=== PATIENT | male | born 1990 | race Caucasian/White ===

== ENCOUNTER 2023-06-30 10:42 | Outpatient (OUT) | payer BC, SELFPAY ==
--- NOTE | 2023-06-30 10:51 | XR_ITS ---
The [address] [address] Patient Name: RIVAS LYLES MRN: [id number] date: 1990 Sex: M Assigned Patient Location: [facility] Current Patient Location: Accession/Order Number: [id number] Exam Date: 06/30/2023 11:04 Report Date: 07/02/2023 12:26 At the request of: LYN MCNALLY Procedure: XR shoulder LT min 2V PROCEDURE: XR shoulder LT min 2V HISTORY: Chronic Pain G89.29, Left Shoulder Pain M25.512 COMPARISON: None. FINDINGS: BONES:No fracture, acute abnormality, or significant arthropathy. SOFT TISSUES:No visible soft tissue swelling. EFFUSION:None visible. OTHER: Negative. XR/XR shoulder LT min 2V IMPRESSION: 1. No acute bone abnormality or significant degenerative changes. Electronically authenticated by: TAYLOR LIN Date: 07/02/2023 12:26
== END 2023-06-30 10:43 | disposition home or self-care (01) ==
LOC: RAD 10:47
PROVIDERS: PCP Nurse Practitioner Family; Visit Provider Nurse Practitioner Family
DX: G89.29 Other chronic pain (principal); M25.512 Pain in left shoulder
CPT/HCPCS: 73030

== ENCOUNTER 2024-08-21 08:47 | Outpatient (OUT) | payer BC, SELFPAY ==
[2024-08-21 09:04] LABS: Basophils Percent Auto 0.2 % (0.2-2.0); Eosinophils Absolute Auto 0.3 10^3/uL (0.0-0.7); Eosinophils Percent Auto 3.1 % (0.9-7.0); Hemoglobin 16.2 g/dL (14.0-18.0); Immature Granulocytes Abs Auto 0.02 10^3/uL (0.00-0.03); Immature Granulocytes Pct Auto 0.2 % (0.0-0.5); Lymphocytes Absolute Auto 3.9 10^3/uL (1.2-3.8); Lymphocytes Percent Auto 43.5 % (20.5-60.0); Mean Corpuscular HGB Conc 34.5 g/dL (29.9-35.2); Mean Corpuscular Hemoglobin 30.1 pg (25.9-34.0); Mean Corpuscular Volume 87.4 fL (80.0-94.0); Mean Platelet Volume 9.6 fL (9.5-13.5); Monocytes Absolute Auto 0.8 10^3/uL (0.3-0.8); Monocytes Percent Auto 9.2 % (1.7-12.0); Neutrophils Absolute Auto 3.9 10^3/uL (1.4-6.5); Neutrophils Percent Auto 43.8 % (43.0-75.0); Platelet Count 210 10^3/uL (150-450); Red Blood Count 5.38 10^6/uL (4.70-6.10); Red Cell Distribution Width 12.9 % (11.0-15.0); White Blood Count 8.9 10^3/uL (4.0-11.0)
[2024-08-21 09:44] LABS: Alanine Aminotransferase 103 U/L (16-63); Albumin Globulin Ratio 1.1; Albumin Level 3.7 g/dL (3.4-5.0); Alkaline Phosphatase 73 U/L (46-116); Anion Gap 8.9; Aspartate Amino Transferase 31 U/L (15-37); BUN Creatinine Ratio 16.7; Bilirubin Total 0.4 mg/dL (0.2-1.0); Carbon Dioxide 29.4 mmol/L (21.0-32.0); Chloride 105 mmol/L (98-107); Chol HDL Ratio 4.2; Cholesterol 179 mg/dL (<=200); Estimated GFR (African America >60 (>=60 mL/min/1.73m^2); Estimated GFR (Non-African Ame >60 (>=60 mL/min/1.73m^2); Globulin 3.3 g/dL; Glucose 133 mg/dL (74-106); HDL Cholesterol 43 mg/dL (40-60); Potassium 4.3 mmol/L (3.5-5.1); Sodium 139 mmol/L (136-145); Triglycerides 178 mg/dL (<=150); VLDL CHOLESTEROL 35.6 mg/dL
== END 2024-08-21 08:48 | disposition home or self-care (01) ==
PROVIDERS: PCP Nurse Practitioner Family; Visit Provider Nurse Practitioner Family
DX: Z00.00 Encounter for general adult medical examination without abnormal findings (principal)
CPT/HCPCS: 36415; 80053; 80061; 85025

== ENCOUNTER 2024-09-18 12:18 | Outpatient (OUT) | payer BC, SELFPAY ==
--- NOTE | 2024-09-18 12:26 | XR_ITS ---
The [address] [address] Patient Name: RIVAS LYLES MRN: [id number] date: 1990 Sex: M Assigned Patient Location: [facility] Current Patient Location: [facility] Accession/Order Number: [id number] Exam Date: 09/18/2024 13:14 Report Date: 09/18/2024 13:14 At the request of: DALTON CANTU MD Procedure: XR chest 2V PA AND LATERAL CHEST: CLINICAL HISTORY: Preoperative clearance COMPARISON: 01/24/2022 There is no focal parenchymal consolidation, effusion or pneumothorax. The cardiac, hilar and mediastinal silhouettes are within normal limits. There is no vascular congestion. The visualized bony thorax is intact. XR/XR chest 2V IMPRESSION: NO ACUTE CARDIOPULMONARY ABNORMALITY. Impression dictated by: Gricel Pitts M.D. 09/18/2024 1:14 PM Dictation Location: [place] [address] Electronically authenticated by: [id number] Y Date: 09/18/2024 13:14
--- OUTSIDE RECORDS SUMMARY | 2024-09-18 12:27 | XMS_ITS | CCD ---
Author Organization [facility] Care Team Providers Care Media Reconciliation Specialist Name Role Phone FITO VERMA Unavailable Unavailable REQUEST, NONE LISTED Primary Care Unavailulises CONTRERAS, DR RAVI Thorpe Consulting Unavailable DIANE, DR RAVI Thorpe Admitting Unavailable DIANE, DR RAVI Thorpe Attending Unavailable DALTON BEARD Consulting Unavailable REQUEST, NONE LISTED Primary Care Unavaila HAL Garcia Admitting Unavailable SYDNEY, HAL Attending Unavailable HAL GRIMES Consulting Unavailable REQUEST, NONE LISTED Primary Care UnavailMICHEL Johnson Admitting Unavailable MICHEL ZALDIVAR Attending Unavailable MICHEL ZALDIVAR Consulting Unavailable Deysi Dsouza Unavailable [phone] DEYSI DSOUZA Primary Care Physician [phone] DEYSI DSOUZA Referring Unavailab Dalton Hugo Attending Unavailable Medications Current Medications Medication Drug Class(es) Dates Sig (Normalized) Sig (Original) 24 hr nicotine 0.875 mg/hr transdermal system (1 source) Cholinergic Nicotinic Agonist Start: 01-11-2023 apply 1 dose transdermal route once daily Nicotine 21 MG/24HR 1 patch to skin Transdermal Once a day for 30 days Dec, Active Pettus (No Known Home Meds) (2 sources) Start: 11-16-2023 Pettus (No Known Home Meds) Active November 16, 2023 12:00am ondansetron 4 mg disintegrating oral tablet (1 source) Serotonin-3 Receptor Antagonist Start: 03-21-2023 take 1 tablet by mouth three times daily as needed Ondansetron 4 MG 1 tablet on the tongue and allow to dissolve Orally three times per day as needed for 10 day(s) Mar, Active polymyxin b 87483 unt/ml / trimethoprim 1 mg/ml ophthalmic solution (1 source) Dihydrofolate Reductase Inhibitor Antibacterial, Polymyxin-class Antibacterial Start: 01-18-2023 take 1 drop(s) into the eye(s) four times daily Polymyxin B-Trimethoprim 35467-2.1 UNIT/ML 1 drop into affected eyes Ophthalmic Four times a day for 5 days Jan, Active varenicline (1 source) Partial Cholinergic Nicotinic Agonist Start: 01-18-2023 Varenicline Tartrate (Starter) 0.5 MG X 11 & 1 MG X 42 as directed Orally Once a day for 30 days Jan, Active Completed/Discontinued Medications Medication Drug Class(es) Dates Sig (Normalized) Sig (Original) amoxicillin 500 mg oral capsule (3 sources) Penicillin-class Antibacterial Start: 07-05-2023 End: 11-16-2023 take 1 capsule by mouth three times daily Amoxicillin 500 mg capsule Discontinued 500 MG PO Three times daily July 05, 2023 12:00am November 16, 2023 2:35pm x 10 days Problems Active Problems Problem Classification Problem Date Documented Date Episodic/Chronic Bacterial infection; unspecified site (1 source) Other specified bacterial agents as the cause of diseases classified elsewhere Episodic Inflammation; infection of eye (except that caused by tuberculosis or sexually transmitteddisease) (1 source) Unspecified conjunctivitis Episodic Noninfectious gastroenteritis (1 source) Noninfective gastroenteritis and colitis, unspecified Episodic Nonspecific chest pain (4 sources) Chest pain, unspecified; Translations: [CHEST PAIN UNSPECIFIED] Onset: 01-24-2022 Episodic Other aftercare (4 sources) Encounter for change or removal of nonsurgical wound dressing; Translations: [ENC CHG/REMOVAL NONSURG WOUND DRSG] Onset: 03-11-2022 Episodic Other nervous system disorders (3 sources) Other chronic pain; Translations: [Other chronic pain] Onset: 01-25-2022 Chronic Other nervous system disorders (6 sources) Chronic pain; Translations: [Other chronic pain] 07-03-2023 Chronic Other non-traumatic joint disorders (3 sources) Pain in left shoulder; Translations: [Left shoulder pain] Episodic Other nutritional; endocrine; and metabolic disorders (1 source) Body mass index 30+ - obesity 08-28-2024 Chronic Other nutritional; endocrine; and metabolic disorders (1 source) Morbid obesity 08-16-2024 Chronic Other screening for suspected conditions (not mental disorders or infectious disease) (3 sources) Encounter for screening for other metabolic disorders; Translations: [Encounter for screening for diseases of the blood and blood-forming organs and certain disorders involving the immune mechanism] Episodic Other skin disorders (1 source) Disorder of skin; Translations: [Other specified disorders of the skin and subcutaneous tissue] Onset: 08-28-2024 Episodic Other skin disorders (1 source) Pilonidal disease 08-28-2024 Episodic Poisoning by nonmedicinal substances (1 source) Allergic reaction to chemical; Translations: [Toxic effect of unspecified substance, accidental (unintentional), initial encounter] 11-16-2023 Episodic Residual codes; unclassified (1 source) Family history of diabetes mellitus Episodic Residual codes; unclassified (1 source) Tobacco user; Translations: [Tobacco use] Onset: 08-28-2024 Episodic Residual codes; unclassified (1 source) Nicotine-filled electronic cigarette user 08-28-2024 Episodic Skin and subcutaneous tissue infections (5 sources) Pilonidal cyst without abscess; Translations: [Pilonidal cyst] Onset: 03-15-2022 08-12-2024 Episodic Comment on above: right thumb Spondylosis; intervertebral disc disorders; other back problems (7 sources) Dorsalgia, unspecified; Translations: [Low back pain] Onset: 03-09-2022 Episodic Sprains and strains (1 source) Strain of muscle, fascia and tendon of lower back, initial encounter; Translations: [Strain of muscle, fascia and tendon of lower back, initial encounter] Onset: 01-25-2018 Episodic Substance-related disorders (12 sources) Nicotine dependence, cigarettes, uncomplicated; Translations: [Smoker] Onset: 03-15-2022 Chronic Unclassified (1 source) Methicillin resistant Staphylococcus aureus (organism) Onset: 04-12-2012 04-16-2012 Comment on above: MRSA rt thumb absces s 04/12/2012 Past or Other Problems Problem Classification Problem Date Documented Da te Episodic/Chronic Unclassified (1 source) Low back pain, unspecified M54.50 Results Test Name Value Interpretation Reference Range Facility Ambulatory Visit Summaryon 0 08-28-2024 Ambulatory Visit Summary Ambulatory Visit Summary TRUPTI RIVAS CR :1990 Visit Date:08/28/2024 Ambulatory Visit Instructions Your Diagnosis Vapes nicotine containing substance Your Care Team Attending Physician - ALONDRA GUTIERREZ, Dalton Thorpe Primary Care Physician - DEYSI DSOUZA CNP Referring Physician - DEYSI DSOUZA CNP Procedures Performed Excision of cyst, Incision AND drainage, Thumb surgery. Discharge Vitals Heart Rate (Peripheral) 92 Respiratory Rate 16 Blood Pressure 140/102 Height 185 cm Height 73 in Weight 132.2 kg Weight 291.451 lb BMI 38.63 Allergies No Known Allergies Problems Ongoing - Any problem that you are currently receiving treatment for. BMI 38.0-38.9,adult Morbid obesity Pilonidal cyst with abscess Vapes nicotine containing substance Historical - Any problem that you are no longer receiving treatment for. Abscess Patient Survey You may receive a survey via text or e-mail asking about your office visit. Please share your experience with us by completing your survey. We appreciate your feedback and thank you for choosing us for your care. Normal [facility] CULTURE WOUNDon 03-09-2022 CULTURE WOUND Culture Observations : LIGHT GROWTH OF MIXED SKIN SHO. Culture Observations: NO GROWTH OF ANAEROBES AT 72 HOURS. Normal [facility] Comment on above: Performed By: #### W OUNDCX #### [facility] [address] [place] [address] Dr. Wyatt Temple CBC AUTO DIFFon 01-24-2022 BASO # 0.0 103/ul Normal 0.0-0.1 [facility] Comment on above: Performed By: #### C BC #### [facility] [address] [place] [address] Dr. Wyatt Temple Basophils/100 WBC (Bld) 0.2 % Normal 0.2-2.0 [facility] Comment on above: Performed By: #### C BC #### [facility] [address] [place] [address] Dr. Wyatt Temple EO # 0.5 103/ul Normal 0.0-0.7 [facility] Comment on above: Performed By: #### C BC #### [facility] [address] [place] [address] Dr. Wyatt Temple Eosinophils/100 WBC (Bld) 3.9 % Normal 0.9-7.0 [facility] Comment on above: Performed By: #### C BC #### [facility] [address] [place] [address] Dr. Wyatt Temple Erythrocyte distribution width (RBC) [Ratio] 13.1 % Normal 11.0-15.0 [facility] Comment on above: Performed By: #### C BC #### [facility] [address] [place] [address] Dr. Wyatt Temple Hematocrit (Bld) [Volume fraction] 50.5 % Normal 42.0-54.0 [facility] Comment on above: Performed By: #### C BC #### [facility] [address] [place] [address] Dr. Wyatt Temple Hemoglobin (Bld) [Mass/Vol] 16.9 g/dL Normal 14.0-18.0 [facility] Comment on above: Performed By: #### C BC #### [facility] [address] [place] [address] Dr. Wyatt Temple IG # 0.05 10e3/ul Critically high 0.00-0.03 [facility] Comment on above: Performed By: #### C BC #### [facility] [address] [place] [address] Dr. Wyatt Temple IG % 0.4 % Normal 0.0-0.5 [facility] Comment on above: Performed By: #### C BC #### [facility] [address] [place] [address] Dr. Wyatt Temple LYMPH # 4.1 103/ul Critically high 1.2-3.8 [facility] Comment on above: Performed By: #### C BC #### [facility] [address] [place] [address] Dr. Wyatt Temple Lymphocytes/100 WBC (Bld) 31.1 % Normal 20.5-60.0 [facility] Comment on above: Performed By: #### C BC #### [facility] [address] [place] [address] Dr. Wyatt Temple MANUAL DIFF REQ NO Normal [facility] Comment on above: Performed By: #### C BC #### [facility] [address] [place] [address] Dr. Wyatt Temple MCH (RBC) [Entitic mass] 29.6 pg Normal 25.9-34.0 [facility] Comment on above: Performed By: #### C BC #### [facility] [address] [address] [address] Wyatt Temple MCHC (RBC) [Mass/Vol] 33.5 g/dL Normal 29.9-35.2 [facility] Comment on above: Performed By: #### C BC #### [facility] [address] [place] [address] Dr. Wyatt Temple MCV (RBC) [Entitic vol] 88.6 fL Normal 80.0-94.0 [facility] Comment on above: Performed By: #### C BC #### [facility] [address] [place] [address] Dr. Wyatt Temple MONO # 1.1 103/ul Critically high 0.3-0.8 [facility] Comment on above: Performed By: #### C BC #### [facility] [address] [place] [address] Dr. Wyatt Temple Monocytes/100 WBC (Bld) 8.0 % Normal 1.7-12.0 [facility] Comment on above: Performed By: #### C BC #### [facility] [address] [place] [address] Dr. Wyatt Temple NEUT # 7.5 103/ul Critically high 1.4-6.5 [facility] Comment on above: Performed By: #### C BC #### [facility] [address] [place] [address] Dr. Wyatt Temple Neutrophils/100 WBC (Bld) 56.4 % Normal 43.0-75.0 [facility] Comment on above: Performed By: #### C BC #### [facility] [address] [place] [address] Dr. Wyatt Temple Platelet mean volume (Bld) [Entitic vol] 9.7 fL Normal 9.5-13.5 [facility] Comment on above: Performed By: #### C BC #### [facility] [address] [address] [address] Wyatt Temple PLT 215 103/ul Normal 150-450 [facility] Comment on above: Performed By: #### C BC #### [facility] [address] [place] [address] Dr. Wyatt Temple RBC 5.70 106/ul Normal 4.70-6.10 [facility] Comment on above: Performed By: #### C BC #### [facility] [address] [place] [address] Dr. Wyatt Temple WBC 13.2 103/ul Critically high 4.0-11.0 [facility] Comment on above: Performed By: #### C BC #### [facility] [address] [place] [address] Dr. Wyatt Temple PROF 14(COMP METB)on 022 Albumin [Mass/Vol] 4.0 g/dL Normal 3.4-5.0 [facility] Comment on above: Performed By: #### C CHRISTIAN HSTROPN #### [facility] [address] [place] [address] Dr. Wyatt Temple Albumin/Globulin [Mass ratio] 1.1 {ratio} Normal [facility] Comment on above: Performed By: #### C CHRISTIAN HSTROPN #### [facility] [address] [place] [address] Dr. Wyatt Temple ALP [Catalytic activity/Vol] 110 U/L Normal 46-116 [facility] Comment on above: Performed By: #### C CHRISTIAN HSTROPN #### [facility] [address] [place] [address] Dr. Wyatt Temple ALT [Catalytic activity/Vol] 74 U/L Critically high 16-63 [facility] Comment on above: Performed By: #### C CHRISTIAN HSTROPN #### [facility] [address] [place] [address] Dr. Wyatt Temple Anion gap [Moles/Vol] 10.0 mmol/L Normal [facility] Comment on above: Performed By: #### C CHRISTIAN, HSTROPN #### [facility] [address] [address] [address] Wyatt Temple AST [Catalytic activity/Vol] 22 U/L Normal 15-37 [facility] Comment on above: Performed By: #### C MP, HSTROPN #### [facility] [address] [address] [address] Wyatt Temple Bilirubin [Mass/Vol] 0.2 mg/dL Normal 0.2-1.0 [facility] Comment on above: Performed By: #### C MP, HSTROPN #### [facility] [address] [address] [address] Wyatt Temple Calcium [Mass/Vol] 8.7 mg/dL Normal 8.5-10.1 [facility] Comment on above: Performed By: #### C MP, HSTROPN #### [facility] [address] [place] [address] Dr. Wyatt Temple Chloride [Moles/Vol] 105 mmol/L Normal 98-107 [facility] Comment on above: Performed By: #### C MP, HSTROPN #### [facility] [address] [place] [address] Dr. Wyatt Temple CO2 [Moles/Vol] 28.0 mmol/L Normal 21.0-32.0 [facility] Comment on above: Performed By: #### C MP, HSTROPN #### [facility] [address] [place] [address] Dr. Wyatt Temple Creatinine [Mass/Vol] 1.01 mg/dL Normal 0.70-1.30 [facility] Comment on above: Performed By: #### C MP, HSTROPN #### [facility] [address] [address] [address] Wyatt Temple EGFR-AF NORWEGIAN >60 Normal >=60 [facility] Comment on above: Performed By: #### C MP, HSTROPN #### [facility] [address] [place] [address] Dr. Wyatt Temple EGFR-NON AF NORWEGIAN >60 Normal >=60 [facility] Comment on above: Performed By: #### C MP, HSTROPN #### [facility] [address] [place] [address] Dr. Wyatt Temple Globulin (S) [Mass/Vol] 3.6 g/dL Normal [facility] Comment on above: Performed By: #### C MP, HSTROPN #### [facility] [address] [place] [address] Dr. Wyatt Temple Glucose [Mass/Vol] 135 mg/dL Critically high 74-[address] [facility] Comment on above: Performed By: #### C MP, HSTROPN #### [facility] [address] [place] [address] Dr. Wyatt Temple Potassium [Moles/Vol] 4.0 mmol/L Normal 3.5-5.1 [facility] Comment on above: Performed By: #### C MP, HSTROPN #### [facility] [address] [place] [address] Dr. Wyatt Temple Protein [Mass/Vol] 7.6 g/dL Normal 6.4-8.2 [facility] Comment on above: Performed By: #### C MP, HSTROPN #### [facility] [address] [place] [address] Dr. Wyatt Temple Sodium [Moles/Vol] 139 mmol/L Normal 136-145 [facility] Comment on above: Performed By: #### C MP, HSTROPN #### [facility] [address] [place] [address] Dr. Wyatt Temple Urea nitrogen [Mass/Vol] 17.0 mg/dL Normal 7.0-18.0 [facility] Comment on above: Performed By: #### C MP, HSTROPN #### [facility] [address] [place] [address] Dr. Wyatt Temple Urea nitrogen/Creatinin e [Mass ratio] 16.8 mg/mg Normal [facility] Comment on above: Performed By: #### C MP, HSTROPN #### [facility] [address] [place] [address] Dr. Wyatt Temple TROPONIN, HIGH SENSITIVITYon 01-24-2022 HSTROP <4.0 Normal 4.0-76.1 [facility] Comment on above: Result Comment: CUT- OFF POINTS HAVE BEEN ESTABLISHED BASED ON THE FOURTH UNIVERSAL DEFINITIONS OF MYOCARDIAL INFARCTION. THE UPPER REFERENCE LIMIT (URL) OF TROPONIN, DEFINED THE 99TH PERCENTILE OF cTnI DISTRIBUTION IN A REFERENCE POPULATION, HAS BEEN CONFIRMED THE DECISION THRESHOLD FOR [place] DIAGNOSIS. Performed By: #### C MP, HSTROPN #### [facility] [address] [address] [address] Wyatt Temple XR CHEST 1 Von 01-24-2022 XR CHEST 1 V EXAM: XR CHEST 1 V HISTORY: CHEST PAIN, UNSPECIFIED COMPARISON: None. TECHNIQUE: Chest single view. FINDINGS: Lines/tubes/devices: EKG leads and other extrinsic structures over the chest. Cardiomediastinum: Heart size is normal. Unremarkable mediastinal silhouette. Vasculature: Normal. Lungs/pleura: No consolidation, sizeable effusion, or visible pneumothorax. Bones/soft tissues: Bony thorax appears grossly intact as seen. No appreciable free air beneath the diaphragm. IMPRESSION: No acute cardiopulmonary findings. Electronically authenticated by: DALTON BEARD Date: 2022-01-24 02:40 Normal [facility] ED Provider Noteon 8 HIM IP Note OR Editor Map Normal [facility] XR LUMBAR SPINE (2-3 VIEWS)o n 01-25-2018 Protein mass conc EXAMINATION:3 XRAY V IEWS OF THE LUMBAR SPINE01/25/2018 8:13 pmCOMPARISON:None.HISTOR Y:ORDERING SYSTEM PROVIDED HISTORY: pain after liftingTECHNOLOGIST PROVIDED HISTORY:pain after liftingFINDINGS:3 images of the lumbar spine were provided. There is no acute fracture.There is minimal loss of height at the thoracolumbar junction, likelyScheuermann segment.IMPRESSION: No acute osseous abnormality.Interpreted by:LILLIANA Stephensigned by:Fran Velarde MD01/25/18inal result Normal [facility] Vital Signs Date Time Vital Sign Value Performing Clinician Facility 08-28-2024 15:30-0400 Blood Pressure Location Dalton CANTU [facility] [place] 08-28-2024 15:30-0400 Diastolic blood pressure 102 mm[Hg] Dalton CANTU [facility] [place] 08-28-2024 15:30-0400 Heart rate 92 /min Dalton BRIZUELAL [facility] [place] 08-28-2024 15:30-0400 Respiratory rate 16 /min Dalton BRIZUELAL [facility] [place] 08-28-2024 15:30-0400 Systolic blood pressure 140 mm[Hg] Dalton BRIZUELAL [facility] [place] 08-12-2024 09:33-0400 Body height 185.[address] [facility] 08-12-2024 09:33-0400 Body mass index (BMI) [Ratio] 37.7 kg/m2 [facility] 08-12-2024 09:33-0400 Body temperature 96.1 [degF] [facility] 08-12-2024 09:33-0400 Body weight 129.[address] [facility] 08-12-2024 09:33-0400 Diastolic blood pressure 80 mm[Hg] [facility] 08-12-2024 09:33-0400 Heart rate 104 /min [facility] 08-12-2024 09:33-0400 SaO2% (BldA) [Mass fraction] 99 % [facility] 08-12-2024 09:33-0400 Systolic blood pressure 124 mm[Hg] [facility] 11-16-2023 14:35-0400 Body height 185.[address] [facility] 11-16-2023 14:35-0400 Body mass index (BMI) [Ratio] 34.7 kg/m2 [facility] 11-16-2023 14:35-0400 Body weight 119.[address] [facility] 11-16-2023 14:35-0400 Diastolic blood pressure 80 mm[Hg] [facility] 11-16-2023 14:35-0400 Heart rate 101 /min [facility] 11-16-2023 14:35-0400 SaO2% (BldA) [Mass fraction] 98 % [facility] 11-16-2023 14:35-0400 Systolic blood pressure 132 mm[Hg] [facility] 07-05-2023 08:52-0400 Body height 185.[address] [facility] 07-05-2023 08:52-0400 Body mass index (BMI) [Ratio] 36.5 kg/m2 [facility] 07-05-2023 08:52-0400 Body weight 125.[address] [facility] 07-05-2023 08:52-0400 Diastolic blood pressure 80 mm[Hg] [facility] 07-05-2023 08:52-0400 Heart rate 108 /min [facility] 07-05-2023 08:52-0400 SaO2% (BldA) [Mass fraction] 98 % [facility] 07-05-2023 08:52-0400 Systolic blood pressure 156 mm[Hg] [facility] 03-21-2023 09:00-0500 Body height 185.42 cm Deysi Dsouza Other [facility] Other 03-21-2023 09:00-0500 Body mass index (BMI) [Ratio] 36.01 kg/m2 Deysi Dsouza Other [facility] Other 03-21-2023 09:00-0500 Body weight 123.83 kg Deysi Dsouza Other [facility] Other 03-21-2023 09:00-0500 Diastolic blood pressure 82 mm[Hg] Deysi Dsouza Other [facility] Other 03-21-2023 09:00-0500 SaO2% (BldA) [Mass fraction] 100 % Deysi Dsouza Other [facility] Other 03-21-2023 09:00-0500 Systolic blood pressure 126 mm[Hg] Deysi Alasrbacher Other [facility] Other 01-18-2023 13:30-0400 Body height 185.42 cm Deysi Alasrbacher Other [facility] Other 01-18-2023 13:30-0400 Body mass index (BMI) [Ratio] 35.8 kg/m2 Deysi Alasrbacher Other [facility] Other 01-18-2023 13:30-0400 Body weight 123.11 kg Deysi Alasrbacher Other [facility] Other 01-18-2023 13:30-0400 Diastolic blood pressure 72 mm[Hg] Deysi Alasrbacher Other [facility] Other 01-18-2023 13:30-0400 Systolic blood pressure 128 mm[Hg] Deysi Alasrbacher Other [facility] Other 01-11-2023 10:30-0400 Body height 185.42 cm Deysi Bishoprbacher Other [facility] Other 01-11-2023 10:30-0400 Body mass index (BMI) [Ratio] 36.28 kg/m2 Deysi Alasrbacher Other [facility] Other 01-11-2023 10:30-0400 Body weight 124.74 kg Deysi Alasrbacher Other [facility] Other 01-11-2023 10:30-0400 Diastolic blood pressure 82 mm[Hg] Deysi Dsouza Other [facility] Other 01-11-2023 10:30-0400 SaO2% (BldA) [Mass fraction] 98 % Deysi Meet Other [facility] Other 01-11-2023 10:30-0400 Systolic blood pressure 126 mm[Hg] Deysi Meet Other [facility] Other Encounters Encounter Date Encounter Type Care Provider Facility Start: 08-28-2024 End: 08-28-2024 ambulatory DEYSI DSOUZA Facility:[facility] Start: 08-28-2024 End: 08-28-2024 Patient encounter procedure Dalton CANTU [facility] [place] Start: 08-12-2024 Patient encounter status [facility] Start: 08-12-2024 End: 08-12-2024 ambulatory [facility] Work Phone: Start: 08-12-2024 End: 08-12-2024 Encounter for general adult medical examination without abnormal findings [facility] Start: 08-12-2024 End: 08-12-2024 Patient encounter procedure [facility] Work Phone: Start: 11-16-2023 End: 11-16-2023 ambulatory [facility] Work Phone: Start: 11-16-2023 End: 11-16-2023 Patient encounter procedure [facility] Work Phone: Start: 07-05-2023 End: 07-05-2023 ambulatory [facility] Work Phone: Start: 07-05-2023 End: 07-05-2023 Patient encounter procedure [facility] Work Phone: Start: 03-21-2023 End: 03-21-2023 ambulatory Deysi Meet Other [facility] Other Start: 03-21-2023 Office outpatient vi sit 15 minutes Deysibeau Reynagaachejacklyn [facility] Start: 01-18-2023 End: 01-18-2023 ambulatory Deysi Meet Other [employer] Other Start: 01-18-2023 Office outpatient vi sit 15 minutes Deysi Juhinigeljacklyn [facility] [place] Start: 01-11-2023 End: 01-11-2023 ambulatory Deysi Meet Other [employer] Other Start: 01-11-2023 Office outpatient ne w 30 minutes Deysi Bishopjuanachejacklyn [facility] [place] Start: 03-11-2022 End: 03-11-[address] NONE LISTED REQUEST Facility: Start: 03-09-2022 End: 03-09-[address] NONE LISTED REQUEST Facility: Start: 01-24-2022 End: 01-24-[address] NONE LISTED REQUEST Facility: Start: 01-25-2018 End: 01-25-2018 Emergency department patient visit FITO VERMA [facility] Procedures Date Procedure Procedure Detail Performing Clinician Start: 01-25-2018 Radex spine lumbosac ral 2/3 views FITO VERMA Excision of cyst Dalton Smalls Comment on above: right hand Incision AND drainage Michae josiah CANTU Thumb surgery Dalton CANTU Plan of Treatment Date Care Activity Detail Author Start: 08-12-2024 Patient referral [facility] Work Phone: Comprehensive metabo lic 2000 panel - Serum or Plasma [facility] Patient referral [facility] Work Phone: XR Lumbar spine GE 4 Views F [facility] Immunizations Immunization Date Immunization Notes Care Provider Marcelino roldankatie 03-17-2013 tetanus and diphther ia toxoids, adsorbed, preservative free, for adult use (5 Lf of tetanus toxoid and 2 Lf of diphtheria toxoid) Dalton CANTU [facility] Payers Date Payer Category Payer Unknown [id number] 2024 Unknown [id number] 2014 Unknown [id number] 1989 Unknown [id number] [id number] 1989 Unknown [id number] 2.16.84 [id number] 1989 Unknown [id number] 2.16.84 [id number] 1989 Unknown [id number] 2.16.84 [id number] 1989 Unknown [id number] 2.16.8 [id number] 1959 Self-pay [id number] [facility] [id number] Unknown [facility] [id number] Social History Date Type Detail Facility Sex Assigned At [facility] Start: 07-05-2023 Tobacco smoking stat us NHIS Smoker (finding) [facility] Start: 1990 Sex Assigned At Male F [facility] Start: 07-05-2018 End: 08-12-2024 Sex Male (finding) [facility] Start: 08-28-2024 Tobacco smoking status Ex-smoker (fi nding) [facility] [place] [facility] [place] Sexual Orientation [facility] [place] Functional Status Date Assessment Result Facility 08-28-2024 Functional Status N/A [facility] [place] Clinical Notes 01-11-2023 to 08-28-2024 Note Date & Type Note Facility 08-28-2024 Note General Surgery Offi ce/Clinic Note Chief Complaint consultation for pilonidal disease HPI Staff 34 year old male presents on consultation from Deysi Dsouza for pilonidal disease. Last evaluation by this office completed 02/2021. 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 History of Present Illness 34 yo male with h/o pilonidal disease, referred for reevaluation; last seen 02/2021 after he had drainage of abscess at [facility]; patient was scheduled for surgery, but patient decided not to proceed; has had multiple episodes of infection since then, requiring drainage; now just drains area himself with a pin; currently no drainage, no pain or fevers. no asa or NSAID use; vapes nicotine containing substances daily. Review of Systems PHQ Score Initial Depression Screen Score: 0 SCORE ROS - Provider Constitutional: no fever, no sweats, no weight loss. Eyes: no glasses, no blurred vision, no visual loss. ENMT: no dentures, no hoarseness, no swallowing difficulties, no hearing loss, no ear infection(s), no nose bleeds. Cardiovascular: normal blood pressure, no chest pain, regular heartbeat, no heart murmur. Respiratory: no shortness of breath, no cough, no asthma, no wheezing. Gastrointestinal: no nausea, no vomiting, no diarrhea, no constipation, no blood in stool, no change in bowel habits, no abdominal pain, no hepatitis. Genitourinary: no kidney stones, no urine infection, no dysuria. Musculoskeletal: no pain, no weakness. Skin: no changing moles, no rash, no skin lumps. Neurologic: no seizures, no epilepsy, no headache. Psychiatric: no emotional or psychiatric problem. Heme/Lymph: no bleeding problems, no anemia, no blood clots, no transfusions. Allergy/Immunologic: no swollen lymph nodes/glands, no IV drug abuse. Other: Additional ROS info: Except as noted in the above Review of Systems and in the History of Present Illness, all other systems have been reviewed and are negative or noncontributory. Physical Exam Vitals & Measurements HR: 92(Peripheral) RR: 16 BP: 140/102 HT: 73 in HT: 185 cm WT: 132.2 kg WT: 291.451 lb BMI: 38.63 HEENT: normal conjunctiva, sclera clear, no scleral icterus, EOM intact, PERRLA, oral mucosa moist without lesions. Neck: trachea midline, no mass, symmetric, no thyromegaly or nodules, no adenopathy Respiratory: lungs CTA, respirations non labored. Cardiovascular: regular rate and rhythm, no murmur, no pedal edema or varicosities. Gastrointestinal: soft, non distended, no tenderness, no masses, no palpable hernias, diastasis recti no, no hepatosplenomegaly; normal bs Musculoskeletal: normal gait, digits and nails without infection, nodes, cyanosis, clubbing. Skin: no rashes, no lesions, no ulcers 1.5 cm chronic granuloma at top of gluteal cleft, nontender, no open areas or drainage; 2 cm below this, 3 pits in gluteal cleft, nondilated, no protruding hair or drainage, no erythema Psychiatric/Neuro: oriented to time, place, person, judgement normal, affect appropriate for age, insight intact, no focal deficits. Tests:, review of old records completed , Discussed surgical options, risks, and possible complications with patient. Assessment/Plan 1. Pilonidal disease (L98.8: Other specified disorders of the skin and subcutaneous tissue) chronic; plan excision of granuloma and midline pits, likely packing of upper incision; informed consent obtained; prone position; recommend quitting, or at lease decreasing, nicotine use in the perioperative period to help wound healing, prevent infection or respiratory problems. Ancef 2 gms IV prior to OR SCDs 2. Vapes nicotine containing substance (Z72.0: Tobacco use) We strongly recommend to quit tobacco use. Cigarette smoking harms nearly every organ of the body, causes many diseases, and reduces the health of smokers in general. Quitting smoking lowers your risk for smoking-related diseases and can add years to your life. We encourage you to visit www.smokefree.gov access to helpful resources including free telephone support. If you decide on prescription treatment to help you quit, your family doctor would be happy to provide these. Follow-up No qualifying data available Problem List/Past Medical History Ongoing BMI 38.0-38.9,adult Morbid obesity Pilonidal cyst with abscess Pilonidal disease Vapes nicotine containing substance Historical Abscess Procedure/Surgical History Excision of cyst, Incision AND drainage, Thumb surgery. Medications No active medications Allergies No Known Allergies Social History Alcohol - Denies Alcohol Use, 02/12/2021 Current, Beer, 1-2 times per year, 08/28/2024 Substance Abuse Current, Marijuana, 1-2 times per week, 08/28/2024 Tobacco Former smoker, quit more than 30 days ago Tobacco Use:. Current vaping or e-cigarette use Smokeless Tobacco Use:. Cigarettes, Vaping, 1 per day. Started age 14.0 Years. Yes, (more content not included)... [facility] Comment on above: Result Comment: Elec tronically Signed By: ALONDRA GUTIERREZ, Dalton Mckeon\Date and Time Signed: 08/28/24 16:15 EDT 03-21-2023 Evaluation note Encounter Date Diagnosis Assessment Notes Mar, Acute gastroenteritis (ICD-10 - K52.9) Viral nature of GI illness reviewed. Must maintain fluid hydration. Slow advancement of clear liquid diet discussed. BRAT diet discussed. Needs for which to seek ER evaluation regarding dehydration reviewed including uncontrolled stools/vomitin g, dry/cracked mouth/lips, not urinating at least every 4 hours, etc. Antiemeticsw/ sedation warning. Strict hygiene to prevent further transmission. Work note given. F/U with PCP if sx persist > 7 days, may need stool studies. [employer] Other 10-04-2023 Evaluation note* Encounter Date Diagnosis Assessment Notes Treatment Notes Treatment Clinical Notes Jan, Other specified bacterial agents as the cause of diseases classified elsewhere (ICD-10 - B96.89) Patient is not a contact wearer. Instructed patient to administer eye drops as prescribed, discussed proper administration. Advised patient they are contagious until after 24 hours on antibiotic eye drops. Advised good hand hygiene and infection control, wash linens and bedding, do not touch eye directly with eye drop bottle, wipe off bottle after every use. do not share eye drop bottles. Eye symptoms should improve in 2-3 days with treatment, if no improvement follow up. Immediate eval if symptoms worsen, eye pain, vision changes, redness and swelling occur around the eye, headache, or any other concerning symptoms. Patient verbalizes understanding and is agreeable to treatment plan. Jan, Unspecified conjunctivitis (ICD-10 - H10.9) Jan, Current smoker (ICD-10 - F17.200) Discussed Chantix today to help quit smoking. Start with monthly starter pack and follow-up every 4 weeks with continuing monthly pack. Discussed nicotine withdrawal symptoms as well as S/E to medication. If suicidal/homicidal idea occur, stop medication and go to ER. Discussed smoking cessation benefits in detail today as well as slow quit approach. [employer] Other 09-27-2023 Evaluation note* Encounter Date Diagnosis Assessment Notes Treatment Notes Treatment Clinical Notes Dec, Other chronic pain (ICD-10 - G89.29) Dec, Pain in left shoulder (ICD-10 - M25.512) Discussed with pt that due to previous injury and current pain will obtain x-ray to rule out cause of the pain. Rest- avoid activities that cause pain, Ice- 20 minutes qid for 2-3 days, Compression- sheila bandage to provide support and limit swelling, Elevation- for 24-48 hrs. NSAIDS otc as directed take w/ food. Will call with results and further recommendations. Pt verbalizes understanding and agrees to plan of care. Dec, Low back pain, unspecified (ICD-10 - M54.50) NO current issues does have a history of back pain. Dec, Screening for metabolic disorder (ICD-10 - Z13.228) will call lab and diagnostic results and recommendations Dec, Screening for deficiency anemia (ICD-10 - Z13.0) Dec, Screening for lipid disorders (ICD-10 - Z13.220) Dec, Family history of diabetes mellitus (ICD-10 - Z83.3) Dec, Current smoker (ICD-10 - F17.200) He is ready to quit. We have discussed the NicoDerm patches in great detail today. We have discussed application in the morning that should last 24 hours. If patient experiences insomnia or nightmares, may discontinue patches at bedtime. Of note, nightmares may be due to nicotine withdrawal. Discussed the importance of decreasing nicotine intake while utilizing patches. Apply patches to a different location every 24 hours to decrease risk of dermatitis. We discussed possible complications of smoking including risk of heart disease, stroke, lung disease, and increase risk of cancer. Your goal is to quit smoking. The availability, risks, and benefits of medication used to treat nicotine addiction as releveant to you have been discussed. We are working together to achieve these goals with the following plan; barriers to these goals have been discussed. You have been given relevant education handouts and a summary of your care plan. Your next follow-up visit for this problem is six months, we will continue to ask progress for quitting and willingness to quit at each appointment. [employer] Other Chief complaint+Reason for visit Narrative* Chief Complaint Admit Date Referral to General Surgeon August 12, 2024 9:31am Reason for Visit Admit Date Pilonidal cyst August 12, 2024 9:3 1am Vaping nicotine dependence, tobacco prod uct August 12, 2024 9:31am Wellness examination August 12, 2024 9: 31am [facility] Work Phone: Evaluation + Plan note No data available for this section [facility] [place] [facility] [place] Evaluation note* Diagnosis Onset Date Resolution Status Current smoker acute Low back pain acute Other chronic pain acute [facility] Work Phone: Evaluation noteNo assessment information available [facility] Work Phone: Evaluation note* Diagnosis Onset Date Resolution Status Admit Date Pilonidal cyst acute July 9:31am Vaping nicotine dependence, tobacco product acute August 12, 2024 9:31am Wellness examination acute Apri l 2024 9:31am [facility] Work Phone: History general Narrative - Reported* Type Description Date Surgical History Thumb surgery Surgical History Cyst drainage [employer] Other Hospital Discharge instructionsAmbulatory Orders* Referral to General Surgery Time Frame: 08/12/24, Location: None [facility] Work Phone: Hospital Discharge instructions No data available for this section [facility] [place] [facility] [place] Progress note No data available for this section [facility] [place] [facility] [place] Summary Purpose Family History No Family History Records Found Relationship Condition Age at Onset Recorded Date/T rosaline Not Specified Hypertension Unknown Relationship Condition Age at Onset Recorded Date/T rosaline mother Hypertension Unknown Advance Directives No Advanced Directives Records Found Advance Directive Response Recorded Date/ Time Advance Directives No July 04 8:50am Chief Complaint and Reason for Visit Chief Complaint Check up Reason for Visit Current smoker Low back pain Other chronic pain Additional Source Comments (unrecognized sect ion and content) No Status Records FoundNo Status Records FoundNo Status Records Found INFORMATION SOURCE (unrecogn ized section and content) DATE CREATED AUTHOR 02/27/2018 [facility] DATE CREATED AUTHOR AUTHOR'S ORGANIZ ATION 03/16/2022 [facility] DATE CREATED AUTHOR AUTHOR'S ORGANIZ ATION 08/30/2024 [facility] REASON FOR VISIT (unrecogniz ed section and content) Check UpPink EyeUPSET STOMAC H FOR DAYS Care Teams (unrecognized sec tion and content) Team Status: Active Member Role Status Dates PHYSICIAN NO FAMILY Primary Care Provider Active Team Status: Inactive Member Role Status Dates PHYSICIAN NO FAMILY Primary Care Provider Active Start: July 05, 2023 End: July 05, 2023 RUSSEL Carson Attending Provider Act lance Start: July 05, 2023 End: July 05, 2023 Team Status: Active Member Role Status Dates RUSSEL Carson Primary Care Provider Active Team Status: Inactive Member Role Status Dates RUSSEL Carson Primary Care Provider, Attending Provider Active Start: November 16, 2023 End: November 16, 2023 Team Status: Inactive Member Role Status Dates RUSSEL Carson Primary Care Provider, Attending Provider Active Start: August 12, 2024 End: August 12, 2024 Goals (unrecognized section and content) Goals may be documented in a n alternate section FOR RECORDS PERTAINING TO PATIENTS WHO ARE OR HAVE BEEN ENROLLED IN A CHEMICAL DEPENDENCY/SUBSTANCEABUSE PROGRAM, SOME INFORMATION MAY BE OMITTED. This clinical summary was aggregated from multiple sources. Caution should be exercised in using it in the provision of clinical care. This summary normalizes information from multiple sources, and as a consequence, information in this document may materially change the coding, format and clinical context of patient data. In addition, data may be omitted in some cases. CLINICAL DECISIONS SHOULD BE BASED ON THE PRIMARY CLINICAL RECORDS. [facility]. provides no warranty or guarantee of the accuracy or completeness of information in this document.
== END 2024-09-18 12:19 | disposition home or self-care (01) ==
PROVIDERS: PCP Nurse Practitioner Family; Visit Provider Surgery
DX: Z01.810 Encounter for preprocedural cardiovascular examination (principal); L05.91 Pilonidal cyst without abscess
CPT/HCPCS: 71046

== ENCOUNTER 2024-09-25 08:45 | Day surgery (SDC) | payer BC, SELFPAY ==
--- OUTSIDE RECORDS SUMMARY | 2024-09-18 09:41 | XMS_ITS | Continuity of Care Document ---
Author Organization [facility] Address [address] [place] [address] Phone Support Name Relationship Address Phone Meet Deysi GOODE Personal Relationship [address] [place] [address] Care Teams Patient Care Team Team Status: Active Member Role Status Dates Deysi Dsouza APRN RIVET MAKER-C Primary Care Provider Active Deysi Dsouza APRN RIVET [employer]KER-C Primary Care Provider Active Visit Care Team Team Status: Inactive Member Role Status Dates Deysi Dsouza APRN RIVET MAKER-C Primary Care Provider, Attending Provider Active Start: August 12, 2024 End: August 12, 2024 Visit Care Team Team Status: Active Member Role Status Dates Deysi Dsouza APRN RIVET MAKER-C Primary Care Provider, Attending Provider Active Start: August 21, 2024 Patient Care Team Team Status: Active Member Role Status Dates Deysi Dsouza APRN RIVET MAKER-C Primary Care Provider, Attending Provider Active Start: September 18, 2024 Patient Care Team Team Status: Inactive Member Role Status Dates Deysi Dsouza APRN RIV[employer]KER-C Primary Care Provider, Attending Provider Active Start: September 18, 2024 End: September 18, 2024 Chief Complaint and Reason for Visit Chief Complaint Admit Date Referral to General Surgeon August 12, 2024 9:31am A1c September 18, 2024 1:39p m Reason for Visit Admit Date Pilonidal cyst August 12, 2024 9:3 1am Vaping nicotine dependence, tobacco prod uct August 12, 2024 9:31am Wellness examination August 12, 2024 9: 31am Allergies, Adverse Reactions, Alerts No known allergies Social History Smoking Status Status Start Date End Date Date of Observa tion Smoker (finding) July 05, 2023 8:53am Observation Status Observation Response Date of Response Patient Sex Male September 18, 2024 1 :40pm Assigned Sex Male 1990 Family History Relationship Condition Age at Onset Recorded Date/T rosaline mother Hypertension Unknown Problems Active Problems Medical Problem Onset Date Status Vaping nicotine dependence, tobacco product Active Low back pain Active Pilonidal cyst Active Wellness examination Active Allergic reaction to chemical substance Active Other chronic pain Active Left shoulder pain Active Current smoker Active Medications Medication Status Dose Units Route Directions Qty Days St art Date Stop Date End Date Instructions Amoxicillin 500 mg capsule Discont inued 500 MG PO Three times daily July 05, 2023 12:00a m Augus t 2023 2:35p m x 10 days [place] (No Known Home Meds) Active November 16, 2023 12:00a m Relevant Diagnostic Tests and/or Laboratory Data Laboratory Results Test Date/Time Result Interpretation Reference Range Result Comment Performing Site Cholesterol/HDL Ratio August 21, 2024 8:55am 4.2 3.3 - 4.4 LOW RISK4.4 - 7.1 AVERAGE RISK7.1 - 11.0 MODERATE RISK>11.0 HIGH RISK Anion Gap August 21, 2024 8:55am 8.9 Basophils # (Auto) August 21, 2024 8:55am 0.0 10 3/uL 0.0-0.1 Cholesterol Level August 21, 2024 8:55am 179 mg/dL <=200 Albumin/Globulin Ratio August 21, 2024 8:55am 1.1 Basophils (%) (Auto) August 21, 2024 8:55am 0.2 % 0.2-2.0 HDL Cholesterol August 21, 2024 8:55am 43 mg/dL 40-60 > or =60 mg/dl - LOW CARDIOVASCULAR RISK<40 mg/dl - HIGH CARDIOVASCULAR RISK Albumin August 21, 2024 8:55am 3.7 g/dL 3.4-5.0 Eosinophils # (Auto) August 21, 2024 8:55am 0.3 10 3/uL 0.0-0.7 LDL Cholesterol, Calculated August 21, 2024 8:55am 101.0 mg/dL <100 mg/dl [id number] mg/dl NEAR OR ABOVE [id number] mg/dl BORDERLINE [id number] mg/dl HIGH>190 mg/dl VERY HIGH Alkaline Phosphatase August 21, 2024 8:55am 73 U/L 46-116 Eosinophils (%) (Auto) August 21, 2024 8:55am 3.1 % 0.9-7.0 Triglycerides Level August 21, 2024 8:55am 178 mg/dL Above high normal <=150 Alanine Aminotransferase (ALT/SGPT) August 21, 2024 8:55am 103 U/L Above high normal 16-63 Hematocrit August 21, 2024 8:55am 47.0 % 42.0-54.0 VLDL Cholesterol August 21, 2024 8:55am 35.6 mg/dL Aspartate Amino Transf (AST/SGOT) August 21, 2024 8:55am 31 U/L 15-37 Hemoglobin August 21, 2024 8:55am 16.2 g/dL 14.0-18.0 BUN/Creatinine Ratio August 21, 2024 8:55am 16.7 Immature Granulocyte # (Auto) August 21, 2024 8:55am 0.02 10 3/uL 0.00-0.03 Blood Urea Nitrogen August 21, 2024 8:55am 18.0 mg/dL 7.0-18.0 Immature Granulocyte % (Auto) August 21, 2024 8:55am 0.2 % 0.0-0.5 Calcium Level August 21, 2024 8:55am 9.0 mg/dL 8.5-10.1 Lymphocytes # (Auto) August 21, 2024 8:55am 3.9 10 3/uL Above high normal 1.2-3.8 Chloride Level August 21, 2024 8:55am 105 mmol/L 98-107 Lymphocytes (%) (Auto) August 21, 2024 8:55am 43.5 % 20.5-60.0 Carbon Dioxide Level August 21, 2024 8:55am 29.4 mmol/L 21.0-32.0 Mean Corpuscular Hemoglobin August 21, 2024 8:55am 30.1 pg 25.9-34.0 Creatinine August 21, 2024 8:55am 1.08 mg/dL 0.70-1.30 Mean Corpuscular Hemoglobin Concent August 21, 2024 8:55am 34.5 g/dL 29.9-35.2 Estimated GFR () August 21, 2024 8:55am >60 >=60 mL/min/1.7 3m 2 Mean Corpuscular Volume August 21, 2024 8:55am 87.4 fL 80.0-94.0 Estimated GFR (Non- August 21, 2024 8:55am >60 >=60 mL/min/1.7 3m 2 Monocytes # (Auto) August 21, 2024 8:55am 0.8 10 3/uL 0.3-0.8 Globulin August 21, 2024 8:55am 3.3 g/dL Monocytes (%) (Auto) August 21, 2024 8:55am 9.2 % 1.7-12.0 Glucose Level August 21, 2024 8:55am 133 mg/dL Above high normal 74-106 Mean Platelet Volume August 21, 2024 8:55am 9.6 fL 9.5-13.5 Potassium Level August 21, 2024 8:55am 4.3 mmol/L 3.5-5.1 Neutrophils # (Auto) August 21, 2024 8:55am 3.9 10 3/uL 1.4-6.5 Sodium Level August 21, 2024 8:55am 139 mmol/L 136-145 Neutrophils (%) (Auto) August 21, 2024 8:55am 43.8 % 43.0-75.0 Total Bilirubin August 21, 2024 8:55am 0.4 mg/dL 0.2-1.0 Platelet Count August 21, 2024 8:55am 210 10 3/uL 150-450 Total Protein August 21, 2024 8:55am 7.0 g/dL 6.4-8.2 Red Blood Count August 21, 2024 8:55am 5.38 10 6/uL 4.70-6.10 Red Cell Distribution Width August 21, 2024 8:55am 12.9 % 11.0-15.0 Corrected White Blood Count August 21, 2024 8:55am 8.9 10 3/uL 4.0-11.0 Vital Signs Vital Reading Result Reference Range Collection Date/Time Height 73 [in_i] August 12 9:33am Weight 129.72 kg August 12 9:33am Body Temperature 96.1 [degF] 97.6-99.0 August 12, 2024 9:33am Heart Rate 104 /min 60-100 August 12 9:33am Oxygen saturation by Pulse oximetry 99 % 95-100 August 12, 2024 9:3 3am BP Systolic 124 mm[Hg] 100-140 August 12 9:33am BP Diastolic 80 mm[Hg] 60-100 August 12 9:33am BMI (Body Mass Index) 37.7 kg/m2 August 12, 2024 9:33am Advance Directives Advance Directive Response Recorded Date/ Time Advance Directives No July 04 024 8:50am Insurance Providers Guarantor Robbi Mcgraw Address [address] [facility] [address] [place] [address] Contact Info. Home Phone: Payer Policy Id Coverage Id Subscriber's Name Subscriber Id Effective Date Expiration Date MMO [id number] Robbi Mcgraw [id number] Shon PARADA/AARON [id number] Robbi Mcgraw [id number] [employer] [id number] Robbi Mcgraw [id number] Encounters Encounter Location(s) Arrival/Admit Date Discharge/Depart Date Provider(s) Departed Physician/Prov ider Office Visit [facility] Physician [facility] August 12, 2024 9:31am August 12, 2024 10:08am Deysi Dsouza APRN CNP Non-patient / Non-visit [facility] Physician [facility] August 21, 2024 8:55am Deysi Dsouza APRN CNP Non-patient / Non-visit [facility] Physician [facility] September 18, 2024 1:23pm Deysi Dsouza APRN CNP Departed Physician/Prov ider Office Visit [facility] Physician [facility] September 18, 2024 1:39pm September 18, 2024 1:40pm Deysi Dsouza APRN CNP Recent Diagnosis Onset Date Admit Date Pilonidal cyst August 12, 2024 9:31am Vaping nicotine dependence, tobacco product August 12, 2024 9:31am Wellness examination August 12, 2024 9:31am Assessments Diagnosis Onset Date Resolution Status Admit Date Pilonidal cyst acute July 9:31am Vaping nicotine dependence, tobacco product acute August 12, 2024 9:31am Wellness examination acute Apri l 2024 9:31am Plan of Treatment Author Deysi Dsouza [facility] Authored August 12, 2024 10: 08am Personalized health advice w as given for screenings discussed and provided. Advanced care planning reviewed and/or information given as requested. Additional counseling was provided here today in regards to general topics regarding health education were discussed in detail. All preventative issues were discussed including remaining a nonsmoker, colorectal screening, the importance of proper sleep for brain health maintenance, maintaining a heart-healthy balanced diet, recognizing and addressing signs of anxiety and depression, maintaining positive relationships with family and friends. Referral placed to have this evaluated by general surgery for possible surgical intervention. We discussed possible complications of smoking including risk of heart disease, stroke, lung disease, and increase risk of cancer. Your goal is to quit smoking. The availability, risks, and benefits of medication used to treat nicotine addiction as relevant to you have been discussed. We are working together to achieve these goals with the following plan; barriers to these goals have been discussed. You have been given relevant education handouts and a summary of your care plan. Your next follow-up visit for this problem is six months, we will continue to ask progress for quitting and willingness to quit at each appointment. Future Tests Future scheduled test information is unavailable Pending Tests Test Name Ordered Date Scheduled Date Comprehensive Metabolic Panel August 12, 2024 9 :47am Future Visits Future appointment information is unavailable Referrals to Other Providers Referral information is unavailable Future Procedures Future procedure information is unavailable Future Medications Future medication information is unavailable Patient Instructions Patient instructions are unavailable
[2024-09-18 12:47] VITALS: BP 135/81; PULSE 93; TEMP 36.5; O2SAT 97; BMI 38.2
[2024-09-25] VITALS (11 sets, daily range): BP systolic 106–167; BP diastolic 63–105; PULSE 84–97; TEMP 36–36.3; O2SAT 96–99; BMI 38.0
--- NOTE | 2024-09-25 | OP_ITS ---
OPERATION DATE: 09/25/2024 PREOPERATIVE DIAGNOSIS: Chronic pilonidal disease. POSTOPERATIVE DIAGNOSIS: Chronic pilonidal disease. PROCEDURE: Excisional biopsy of chronic pilonidal disease, including granuloma and upper midline pits with primary closure. SURGEON: Seferino Gomez M.D. ANESTHESIA: General endotracheal, as well as local with 0.5% Marcaine plain. ESTIMATED BLOOD LOSS: Less than 10 mL. INDICATIONS AND CONSENT: Patient is a 34-year-old male with a long history of pilonidal disease with intermittent flare ups, infection and drainage. Indications, risks, benefits, alternatives of proceeding with excision, possible primary closure, possible packing were explained extensively to the patient, including the risks of bleeding, infection, scarring, pain, recurrence, need for prolonged packing and wound care, as well as anesthetic complications. All of his questions were answered. Informed consent was obtained. PROCEDURE: Patient brought to the operating room, placed in the supine position. General anesthesia was induced. He was then placed in the prone position and appropriately padded and monitored. He was prepped and draped in the usual sterile fashion. He has had a chronic granuloma in the right area above the gluteal cleft, as well as three midline pits in the upper gluteal cleft. The granuloma was excised in elliptical fashion, off of the midline. There was extensive scarring deep, all the way down to the fascia, with granulomatous changes. This was completely excised down to the sacral fascia, using sharp dissection as well as needle tip electrocautery. The area was curetted out until completely clear. It did not track down to the midline pits. There was good hemostasis. The midline pits were then excised in elliptical fashion, full thickness. There was no evidence of foreign body or granuloma beneath these areas. This incision was then closed with interrupted 4-0 Monocryl subcutaneous sutures, as well as a 4-0 Monocryl subcuticular suture, and then some interrupted 4-0 nylon sutures and skin glue. The upper incision was closed with 3-0 Monocryl subcutaneous sutures, as well as a 4-0 Monocryl subcuticular suture and interrupted 4-0 nylon sutures. Skin glue was applied to this incision as well, as well as sterile pressure dressings. It should be noted, there was no purulence in the granulomatous areas. Sterile pressure dressing was applied. Sponge and needle counts were correct x3 per nursing personnel. Patient was placed back in the supine position, extubated and sent to recovery room in good condition. CC: FABIANA Carson
--- OUTSIDE RECORDS SUMMARY | 2024-09-25 09:11 | XMS_ITS | CCD ---
Author Organization [facility] Care Team Providers Care Spine Specialist Name Role Phone FITO VERMA Unavailable Unavailable REQUEST, NONE LISTED Primary Care Unavailulises CONTRERAS, DR RAVI Thorpe Consulting Unavailable DIANE, DR RAVI Thorpe Admitting Unavailable DIANE, DR RAVI Thorpe Attending Unavailable DALTON BEARD Consulting Unavailable REQUEST, NONE LISTED Primary Care Unavaila HAL Garcia Admitting Unavailable SYDNEY, HAL Attending Unavailable HAL GRIMSE Consulting Unavailable REQUEST, NONE LISTED Primary Care UnavailMICHEL Johnson Admitting Unavailable MICHEL ZALDIVAR Attending Unavailable MICHEL ZALDIVAR Consulting Unavailable Deysi Dsouza Unavailable DEYSI DSOUZA Primary Care Physician DEYSI DSOUZA Referring Unavailab Dalton Hugo Attending Unavailable Medications Current Medications Medication Drug Class(es) Dates Sig (Normalized) Sig (Original) 24 hr nicotine 0.875 mg/hr transdermal system (1 source) Cholinergic Nicotinic Agonist Start: 01-11-2023 apply 1 dose transdermal route once daily Nicotine 21 MG/24HR 1 patch to skin Transdermal Once a day for 30 days Dec, Active [place] (No Known Home Meds) (3 sources) Start: 11-16-2023 [place] (No Known Home Meds) Active November 16, 2023 12:00am ondansetron 4 mg disintegrating oral tablet (1 source) Serotonin-3 Receptor Antagonist Start: 03-21-2023 take 1 tablet by mouth three times daily as needed Ondansetron 4 MG 1 tablet on the tongue and allow to dissolve Orally three times per day as needed for 10 day(s) Mar, Active polymyxin b 32895 unt/ml / trimethoprim 1 mg/ml ophthalmic solution (1 source) Dihydrofolate Reductase Inhibitor Antibacterial, Polymyxin-class Antibacterial Start: 01-18-2023 take 1 drop(s) into the eye(s) four times daily Polymyxin B-Trimethoprim 82331-1.1 UNIT/ML 1 drop into affected eyes Ophthalmic Four times a day for 5 days Jan, Active varenicline (1 source) Partial Cholinergic Nicotinic Agonist Start: 01-18-2023 Varenicline Tartrate (Starter) 0.5 MG X 11 & 1 MG X 42 as directed Orally Once a day for 30 days Jan, Active Completed/Discontinued Medications Medication Drug Class(es) Dates Sig (Normalized) Sig (Original) amoxicillin 500 mg oral capsule (4 sources) Penicillin-class Antibacterial Start: 07-05-2023 End: 11-16-2023 [...] Onset: 01-25-2022 Chronic Other nervous system disorders (7 sources) Chronic pain; Translations: [Other chronic pain] 07-03-2023 Chronic Other non-traumatic joint disorders (4 sources) Pain in left shoulder; Translations: [Left [...] disease 08-28-2024 Episodic Poisoning by nonmedicinal substances (2 sources) Allergic reaction to chemical; Translations: [Toxic effect of unspecified substance, accidental (unintentional), initial encounter] 11-16-2023 Episodic Residual codes; unclassified (1 source) Family history of diabetes mellitus Episodic Residual codes; unclassified (1 source) Tobacco user; Translations: [Tobacco use] Onset: 08-28-2024 Episodic Residual codes; unclassified (1 source) Nicotine-filled electronic cigarette user 08-28-2024 Episodic Skin and subcutaneous tissue infections (7 sources) Pilonidal cyst without abscess; Translations: [Pilonidal cyst] Onset: 03-15-2022 08-12-2024 Episodic Comment on above: right thumb Spondylosis; intervertebral disc disorders; other back problems (8 sources) Dorsalgia, unspecified; Translations: [Low back pain] Onset: 03-09-2022 Episodic Sprains and strains (1 source) Strain of muscle, fascia and tendon of lower back, initial encounter; Translations: [Strain of muscle, fascia and tendon of lower back, initial encounter] Onset: 01-25-2018 Episodic Substance-related disorders (15 sources) Nicotine dependence, cigarettes, uncomplicated; Translations: [Smoker] [...] for choosing us for your care. Normal [facility] Basophils Auto (Bld) [#/Vol] on 08-21-2024 Basophils (Bld) [#/Vol] Automated basophil count 0.0-0.1 [facility] Basophils/100 WBC Auto (Bld) on 08-21-2024 Basophils/100 WBC (Bld) Automated basophil % 0.2-2.0 [facility] Cholesterol in LDL Calc [Mas s/Vol]on 08-21-2024 Cholesterol in LDL [Mass/Vol] Cholesterol in LDL [Mass/volume] in Serum or Plasma by calculation [facility] Comment on above: <100 mg/dl [id number] 0-129 mg/dl NEAR OR ABOVE [id number] mg/dl BORDERLINE [id number] mg/dl HIGH>190 mg/dl VERY HIGH Cholesterol in VLDL Calc [Ma ss/Vol]on 08-21-2024 Cholesterol in VLDL [Mass/Vol] Cholesterol in VLDL [Mass/volume] in Serum or Plasma by calculation [facility] Eosinophils/100 WBC Auto (Bl d)on 08-21-2024 Eosinophils/100 WBC (Bld) Automated eosinophil % 0.9-7.0 [facility] Erythrocyte distribution wid th Auto (RBC) [Ratio]on 08-21-2024 Erythrocyte distribution width (RBC) [Ratio] Erythrocyte distribution width [Ratio] by Automated count 11.0-15.0 [facility] Estimated glomerular filtrat ion rate (GFR) non- Americanon 08-21-2024 GFR/1.73 sq M.predicted among non-blacks MDRD (S/P/Bld) [Vol rate/Area] Estimated glomerular filtration rate (GFR) non- >=60 mL/min/1.73m 2 [facility] Globulin Calc (S) [Mass/Vol] on 08-21-2024 Globulin (S) [Mass/Vol] Serum globulin measurement by calculation (mass/volume) [facility] Hematocrit Auto (Bld) [Volum e fraction]on 08-21-2024 Hematocrit (Bld) [Volume fraction] Hematocrit [Volume Fraction] of Blood by Automated count 42.0-54.0 [facility] Hemoglobin [Mass/volume] in Bloodon 08-21-2024 Hemoglobin (Bld) [Mass/Vol] Hemoglobin [Mass/volume] in Blood 14.0-18.0 [facility] Laboratory - Chemistry and C hemistry - challengeon 08-21-2024 Albumin [Mass/Vol] 3.7 g/dL 3.4-5.0 [facility] ALP [Catalytic activity/Vol] 73 U/L 46-116 [facility] ALT [Catalytic activity/Vol] 103 U/L High 16-63 [facility] AST [Catalytic activity/Vol] 31 U/L 15-37 [facility] Bilirubin [Mass/Vol] 0.4 mg/dL 0.2-1.0 [facility] Calcium [Mass/Vol] 9.0 mg/dL 8.5-10.1 [facility] Chloride [Moles/Vol] 105 mmol/L 98-107 [facility] Cholesterol [Mass/Vol] 179 mg/dL <=200 [facility] Cholesterol in HDL [Mass/Vol] 43 mg/dL 40-60 [facility] Comment on above: > or =60 mg/dl - LOW CARDIOVASCULAR RISK<40 mg/dl - HIGH CARDIOVASCULAR RISK CO2 [Moles/Vol] 29.4 mmol/L 21.0-32.0 [facility] Creatinine [Mass/Vol] 1.08 mg/dL 0.70-1.30 [facility] GFR/1.73 sq M.predicted MDRD (S/P/Bld) [Vol rate/Area] mL/min/{1.73_m2} >=60 mL/min/1.73m 2 [facility] Glucose [Mass/Vol] 133 mg/dL High 74-106 [facility] Potassium [Moles/Vol] 4.3 mmol/L 3.5-5.1 [facility] Protein [Mass/Vol] 7.0 g/dL 6.4-8.2 [facility] Sodium [Moles/Vol] 139 mmol/L 136-145 [facility] Triglyceride [Mass/Vol] 178 mg/dL High <=150 [facility] Urea nitrogen [Mass/Vol] 18.0 mg/dL 7.0-18.0 [facility] Urea nitrogen/Creatinine [Mass ratio] 16.7 mg/mg [facility] Laboratory - Hematology and Cell countson 08-21-2024 Immature granulocytes/100 WBC (Bld) 0.2 % 0.0-0.5 [facility] Leukocytes [#/volume] correc concetta for nucleated erythrocytes in Blood by Automated counon 08-21-2024 WBC corrected for nucl RBC Auto (Bld) [#/Vol] Leukocytes [#/volume] corrected for nucleated erythrocytes in Blood by Automated coun 4.0-11.0 [facility] Lymphocytes Auto (Bld) [#/Vo l]on 08-21-2024 Lymphocytes (Bld) [#/Vol] Lymphocytes [#/volume] in Blood by Automated count High 1.2-3.8 [facility] Lymphocytes/100 WBC Auto (Bl d)on 08-21-2024 Lymphocytes/100 WBC (Bld) Lymphocytes/100 leukocytes in Blood by Automated count 20.5-60.0 [facility] MCH Auto (RBC) [Entitic mass ]on 08-21-2024 MCH (RBC) [Entitic mass] MCH [Entitic mass] by Automated count 25.9-34.0 [facility] MCHC Auto (RBC) [Mass/Vol]on 08-21-2024 MCHC (RBC) [Mass/Vol] MCHC [Mass/volume] by Automated count 29.9-35.2 [facility] MCV Auto (RBC) [Entitic vol] on 08-21-2024 MCV (RBC) [Entitic vol] MCV [Entitic volume] by Automated count 80.0-94.0 [facility] Monocytes Auto (Bld) [#/Vol] on 08-21-2024 Monocytes (Bld) [#/Vol] Automated blood monocyte count 0.3-0.8 [facility] Monocytes/100 WBC Auto (Bld) on 08-21-2024 Monocytes/100 WBC (Bld) Automated monocyte % 1.7-12.0 [facility] Neutrophils Auto (Bld) [#/Vo l]on 08-21-2024 Neutrophils (Bld) [#/Vol] Neutrophils [#/volume] in Blood by Automated count 1.4-6.5 [facility] Neutrophils/100 WBC Auto (Bl d)on 08-21-2024 Neutrophils/100 WBC (Bld) Automated neutrophil % 43.0-75.0 [facility] No Panel Informationon 08-21 Eosinophils # (Auto) 0.3 10 3/uL 0.0-0.7 [facility] Immature Granulocyte # (Auto) 0.02 10 3/uL 0.00-0.03 [facility] Platelet mean volume Auto (B ld) [Entitic vol]on 08-21-2024 Platelet mean volume (Bld) [Entitic vol] Platelet mean volume [Entitic volume] in Blood by Automated count 9.5-13.5 [facility] Platelets Auto (Bld) [#/Vol] on 08-21-2024 Platelets (Bld) [#/Vol] Platelets [#/volume] in Blood by Automated count 150-450 [facility] RBC Auto (Bld) [#/Vol]on RBC (Bld) [#/Vol] Erythrocytes [#/volu me] in Blood by Automated count 4.70-6.10 [facility] Serum or plasma albumin/glob ulin mass ratioon 08-21-2024 Albumin/Globulin [Mass ratio] Serum or plasma albumin/globulin mass ratio [facility] Serum or plasma anion gap de terminationon 08-21-2024 Anion gap [Moles/Vol] Serum or plasma anion gap determination [facility] Serum or plasma total choles terol/high density lipoprotein (HDL) cholesterol mass silvana 08-21-2024 Cholesterol.total/Ch olesterol in HDL [Mass ratio] Serum or plasma total cholesterol/high density lipoprotein (HDL) cholesterol mass [facility] Comment on above: 3.3 - 4.4 LOW RISK4. 4 - 7.1 AVERAGE RISK7.1 - 11.0 MODERATE RISK>11.0 HIGH RISK CULTURE WOUNDon 03-09-2022 CULTURE WOUND Culture Observations : LIGHT GROWTH OF MIXED SKIN SOH. Culture Observations: NO GROWTH OF ANAEROBES AT 72 HOURS. Normal [facility] Comment on above: Performed By: #### W OUNDCX #### [facility] [address] [place] [address] Dr. Wyatt Temple CBC AUTO DIFFon 01-24-2022 BASO # 0.0 103/ul Normal 0.0-0.1 [facility] Comment on above: Performed By: #### C BC #### [facility] [address] [place] [address] Dr. Wyatt Temple Basophils/100 WBC (Bld) 0.2 % Normal 0.2-2.0 [facility] Comment on above: Performed By: #### C BC #### [facility] [address] [place] [address] Dr. Wyatt Temple EO # 0.5 103/ul Normal 0.0-0.7 [facility] Comment on above: Performed By: #### C BC #### [facility] [address] [place] [address] Dr. Wyatt Temple Eosinophils/100 WBC (Bld) 3.9 % Normal 0.9-7.0 [facility] Comment on above: Performed By: #### C BC #### [facility] [address] [place] [address] Dr. Wyatt Temple Erythrocyte distribution width (RBC) [Ratio] 13.1 % Normal 11.0-15.0 [facility] Comment on above: Performed By: #### C BC #### [facility] [address] [place] [address] Dr. Wyatt Temple Hematocrit (Bld) [Volume fraction] 50.5 % Normal 42.0-54.0 [facility] Comment on above: Performed By: #### C BC #### [facility] [address] [place] [address] Dr. Wyatt Temple Hemoglobin (Bld) [Mass/Vol] 16.9 g/dL Normal 14.0-18.0 [facility] Comment on above: Performed By: #### C BC #### [facility] [address] [place] [address] Dr. Wyatt Temple IG # 0.05 10e3/ul Critically high 0.00-0.03 [facility] Comment on above: Performed By: #### C BC #### [facility] [address] [place] [address] Dr. Wyatt Temple IG % 0.4 % Normal 0.0-0.5 [facility] Comment on above: Performed By: #### C BC #### [facility] [address] [place] [address] Dr. Wyatt Temple LYMPH # 4.1 103/ul Critically high 1.2-3.8 [facility] Comment on above: Performed By: #### C BC #### [facility] [address] [place] [address] Dr. Wyatt Temple Lymphocytes/100 WBC (Bld) 31.1 % Normal 20.5-60.0 [facility] Comment on above: Performed By: #### C BC #### [facility] [address] [place] [address] Dr. Wyatt Temple MANUAL DIFF REQ NO Normal [facility] Comment on above: Performed By: #### C BC #### [facility] [address] [place] [address] Dr. Wyatt Temple MCH (RBC) [Entitic mass] 29.6 pg Normal 25.9-34.0 [facility] Comment on above: Performed By: #### C BC #### [facility] [address] [place] [address] Dr. Wyatt Temple MCHC (RBC) [Mass/Vol] 33.5 g/dL Normal 29.9-35.2 [facility] Comment on above: Performed By: #### C BC #### [facility] [address] [address] [address] Wyatt Temple MCV (RBC) [Entitic vol] 88.6 fL Normal 80.0-94.0 [facility] Comment on above: Performed By: #### C BC #### [facility] [address] [address] [address] Wyatt Temple MONO # 1.1 103/ul Critically high 0.3-0.8 [facility] Comment on above: Performed By: #### C BC #### [facility] [address] [address] [address] Wyatt Temple Monocytes/100 WBC (Bld) 8.0 % Normal 1.7-12.0 [facility] Comment on above: Performed By: #### C BC #### [facility] [address] [place] [address] Dr. Wyatt Temple NEUT # 7.5 103/ul Critically high 1.4-6.5 [facility] Comment on above: Performed By: #### C BC #### [facility] [address] [place] [address] Dr. Wyatt Temple Neutrophils/100 WBC (Bld) 56.4 % Normal 43.0-75.0 [facility] Comment on above: Performed By: #### C BC #### [facility] [address] [address] [address] Wyatt Temple Platelet mean volume (Bld) [Entitic vol] 9.7 fL Normal 9.5-13.5 [facility] Comment on above: Performed By: #### C BC #### [facility] [address] [address] [address] Wyatt Temple PLT 215 103/ul Normal 150-450 [facility] Comment on above: Performed By: #### C BC #### [facility] [address] [address] [address] Wyatt Temple RBC 5.70 106/ul Normal 4.70-6.10 [facility] Comment on above: Performed By: #### C BC #### [facility] [address] [address] [address] Wyatt Temple WBC 13.2 103/ul Critically high 4.0-11.[address] [facility] Comment on above: Performed By: #### C BC #### [facility] [address] [place] [address] Dr. Wyatt Temple PROF 14(COMP METB)on 022 Albumin [Mass/Vol] 4.0 g/dL Normal 3.4-5.0 [facility] Comment on above: Performed By: #### C MP, HSTROPN #### [facility] [address] [place] [address] Dr. Wyatt Temple Albumin/Globulin [Mass ratio] 1.1 {ratio} Normal [facility] Comment on above: Performed By: #### C MP, HSTROPN #### [facility] [address] [place] [address] Dr. Wyatt Temple ALP [Catalytic activity/Vol] 110 U/L Normal 46-116 [facility] Comment on above: Performed By: #### C MP, HSTROPN #### [facility] [address] [place] [address] Dr. Wyatt Temple ALT [Catalytic activity/Vol] 74 U/L Critically high 16-63 [facility] Comment on above: Performed By: #### C MP, HSTROPN #### [facility] [address] [place] [address] Dr. Wyatt Temple Anion gap [Moles/Vol] 10.0 mmol/L Normal [facility] Comment on above: Performed By: #### C MP, HSTROPN #### [facility] [address] [place] [address] Dr. Wyatt Temple AST [Catalytic activity/Vol] 22 U/L Normal 15-37 [facility] Comment on above: Performed By: #### C MP, HSTROPN #### [facility] [address] [place] [address] Dr. Wyatt Temple Bilirubin [Mass/Vol] 0.2 mg/dL Normal 0.2-1.0 [facility] Comment on above: Performed By: #### C MP, HSTROPN #### [facility] [address] [place] [address] Dr. Wyatt Temple Calcium [Mass/Vol] 8.7 mg/dL Normal 8.5-10.1 [facility] Comment on above: Performed By: #### C MP, HSTROPN #### [facility] [address] [address] [address] Wyatt Temple Chloride [Moles/Vol] 105 mmol/L Normal 98-107 [facility] Comment on above: Performed By: #### C CHRISTIAN, HSTROPN #### [facility] [address] [place] [address] Dr. Wyatt Temple CO2 [Moles/Vol] 28.0 mmol/L Normal 21.0-32.[address] [facility] Comment on above: Performed By: #### C CHRISTIAN, HSTROPN #### [facility] [address] [place] [address] Dr. Wyatt Temple Creatinine [Mass/Vol] 1.01 mg/dL Normal 0.70-1.30 [facility] Comment on above: Performed By: #### C CHRISTIAN, HSTROPN #### [facility] [address] [place] [address] Dr. Wyatt Temple EGFR-AF ANDORRAN >60 Normal >=60 [facility] Comment on above: Performed By: #### C CHRISTIAN, HSTROPN #### [facility] [address] [place] [address] Dr. Wyatt Temple EGFR-NON AF ANDORRAN >60 Normal >=60 [facility] Comment on above: Performed By: #### C CHRISTIAN, HSTROPN #### [facility] [address] [place] [address] Dr. Wyatt Temple Globulin (S) [Mass/Vol] 3.6 g/dL Normal [facility] Comment on above: Performed By: #### C CHRISTIAN, HSTROPN #### [facility] [address] [place] [address] Dr. Wyatt Temple Glucose [Mass/Vol] 135 mg/dL Critically high 74-106 [facility] Comment on above: Performed By: #### C MP, HSTROPN #### [facility] [address] [place] [address] Dr. Wyatt Temple Potassium [Moles/Vol] 4.0 mmol/L Normal 3.5-5.1 [facility] Comment on above: Performed By: #### C MP, HSTROPN #### [facility] [address] [place] [address] Dr. Wyatt Temple Protein [Mass/Vol] 7.6 g/dL Normal 6.4-8.2 [facility] Comment on above: Performed By: #### C MP, HSTROPN #### [facility] [address] [place] [address] Dr. Wyatt Temple Sodium [Moles/Vol] 139 mmol/L Normal 136-145 [facility] Comment on above: Performed By: #### C MP, HSTROPN #### [facility] [address] [address] [address] Wyatt Temple Urea nitrogen [Mass/Vol] 17.0 mg/dL Normal 7.0-18.0 [facility] Comment on above: Performed By: #### C MP, HSTROPN #### [facility] [address] [place] [address] Dr. Wyatt Temple Urea nitrogen/Creatinine [Mass ratio] 16.8 mg/mg Normal [facility] Comment on above: Performed By: #### C MP, HSTROPN #### [facility] [address] [place] [address] Dr. Wyatt Temple TROPONIN, HIGH SENSITIVITYon 01-24-2022 HSTROP <4.0 Normal 4.0-76.1 [facility] Comment on above: Result Comment: CUT- OFF POINTS HAVE BEEN ESTABLISHED BASED ON THE FOURTH UNIVERSAL DEFINITIONS OF MYOCARDIAL INFARCTION. THE UPPER REFERENCE LIMIT (URL) OF TROPONIN, DEFINED THE 99TH PERCENTILE OF cTnI DISTRIBUTION IN A REFERENCE POPULATION, HAS BEEN CONFIRMED THE DECISION THRESHOLD FOR NE DIAGNOSIS. Performed By: #### C , HSTROPN #### [facility] [address] [address] [address] Wyatt Temple XR CHEST 1 Von [...] DALTON BEARD Date: 2022-01-24 02:40 Normal [facility] ED Provider Noteon 8 HIM IP Note OR Media Sales Executive Normal [facility] XR LUMBAR SPINE (2-3 VIEWS)o n 01-25-2018 Protein mass conc EXAMINATION:3 XRAY VIEWS OF THE LUMBAR SPINE01/25/2018 8:13 pmCOMPARISON:None.HISTO RY:ORDERING SYSTEM PROVIDED HISTORY: pain after liftingTECHNOLOGIST PROVIDED HISTORY:pain after liftingFINDINGS:3 images of the lumbar spine were provided. There is no acute fracture.There is minimal loss of height at the thoracolumbar junction, likelyScheuermann segment.IMPRESSION: No acute osseous abnormality.Interpreted by:LILLIANA Stephensigned by:Fran Velarde MD01/25/18inal result Normal [facility] Vital Signs Date Time Vital Sign Value Performing Clinician Facility 08-28-2024 15:30-0400 Blood Pressure Location Dalton [facility]U [facility] [place] 08-28-2024 15:30-0400 Diastolic blood pressure 102 mm[Hg] Dalton [facility] [place] 08-28-2024 15:30-0400 Heart rate 92 /min Dalton [facility]U [facility] [place] 08-28-2024 15:30-0400 Respiratory rate 16 /min Dalton [facility] [place] 08-28-2024 15:30-0400 Systolic blood pressure 140 mm[Hg] Dalton [facility]ANTU [facility] [place] 08-12-2024 09:33-0400 Body height 185.42 cm [facility] 08-12-2024 09:33-0400 Body mass index (BMI) [Ratio] 37.7 kg/m2 [facility] 08-12-2024 09:33-0400 Body temperature 96.1 [degF] [facility] 08-12-2024 09:33-0400 Body weight 129.72 kg [facility] 08-12-2024 09:33-0400 Diastolic blood pressure 80 mm[Hg] [facility] 08-12-2024 09:33-0400 Heart rate 104 /min [facility] 08-12-2024 09:33-0400 SaO2% (BldA) [Mass fraction] 99 % [facility] 08-12-2024 09:33-0400 Systolic blood pressure 124 mm[Hg] [facility] 11-16-2023 14:35-0400 Body height 185.42 cm [facility] 11-16-2023 14:35-0400 Body mass index (BMI) [Ratio] 34.7 kg/m2 [facility] 11-16-2023 14:35-0400 Body weight 119.29 kg [facility] 11-16-2023 14:35-0400 Diastolic blood pressure 80 mm[Hg] [facility] 11-16-2023 14:35-0400 Heart rate 101 /min [facility] 11-16-2023 14:35-0400 SaO2% (BldA) [Mass fraction] 98 % [facility] 11-16-2023 14:35-0400 Systolic blood pressure 132 mm[Hg] [facility] 07-05-2023 08:52-0400 Body height 185.42 cm [facility] 07-05-2023 08:52-0400 Body mass index (BMI) [Ratio] 36.5 kg/m2 [facility] 07-05-2023 08:52-0400 Body weight 125.64 kg [facility] 07-05-2023 08:52-0400 Diastolic blood pressure 80 mm[Hg] [facility] 07-05-2023 08:52-0400 Heart rate 108 /min [facility] 07-05-2023 08:52-0400 SaO2% (BldA) [Mass fraction] 98 % [facility] 07-05-2023 08:52-0400 Systolic blood pressure 156 mm[Hg] [facility] 03-21-2023 09:00-0500 Body height 185.42 cm Deysi Dsouza Other [employer] [facility] [place] Other 03-21-2023 09:00-0500 Body mass index (BMI) [Ratio] 36.01 kg/m2 Deysi Dsouza Other [employer] Other 03-21-2023 09:00-0500 Body weight 123.83 kg Deysi Dsouza Other [employer] Other 03-21-2023 09:00-0500 Diastolic blood pressure 82 mm[Hg] Deysi Dsouza Other [employer] Other 03-21-2023 09:00-0500 SaO2% (BldA) [Mass fraction] 100 % Deysi Dsouza Other [employer] Other 03-21-2023 09:00-0500 Systolic blood pressure 126 mm[Hg] Deysi Dsouza Other [employer] Other 01-18-2023 13:30-0400 Body height 185.42 cm Deysi Dsouza Other [employer] Other 01-18-2023 13:30-0400 Body mass index (BMI) [Ratio] 35.8 kg/m2 Deysi Bernardr Other [employer] Other 01-18-2023 13:30-0400 Body weight 123.11 kg Deysi Juhinigelr Other [employer] Other 01-18-2023 13:30-0400 Diastolic blood pressure 72 mm[Hg] Deysi Juhiacher Other [employer] Other 01-18-2023 13:30-0400 Systolic blood pressure 128 mm[Hg] Deysi Juhiacher Other [employer] Other 01-11-2023 10:30-0400 Body height 185.42 cm Deysi Marco Antonior Other [employer] Other 01-11-2023 10:30-0400 Body mass index (BMI) [Ratio] 36.28 kg/m2 Deysi Alasjuanacher Other [employer] Other 01-11-2023 10:30-0400 Body weight 124.74 kg Deysi Juhiacher Other [employer] Other 01-11-2023 10:30-0400 Diastolic blood pressure 82 mm[Hg] Deysi Juhiacher Other [employer] Other 01-11-2023 10:30-0400 SaO2% (BldA) [Mass fraction] 98 % Deysi Marco Antonior Other [employer] Other 01-11-2023 10:30-0400 Systolic blood pressure 126 mm[Hg] Deysi Dsouza Other [employer] Other Encounters Encounter Date Encounter Type Care Provider Facility Start: 09-18-2024 End: 09-18-2024 ambulatory [facility] Work Phone: Start: 09-18-2024 End: 09-18-2024 Patient encounter procedure [facility] Work Phone: Start: 09-18-2024 Non-patient / Non-visit [facility] Work Phone: Start: 08-28-2024 End: 08-28-2024 ambulatory DEYSI DSOUZA Facility:[facility] Start: 08-28-2024 End: 08-28-2024 Patient encounter procedure Dalton CANTU [facility] [place] Start: 08-21-2024 Non-patient / Non-visit [facility] Work Phone: Start: 08-12-2024 Patient encounter status [facility] Start: 08-12-2024 End: 08-12-2024 ambulatory [facility] Work Phone: Start: 08-12-2024 End: 08-12-2024 Encounter for general adult medical examination without abnormal findings [facility] Start: 08-12-2024 End: 08-12-2024 Patient encounter procedure [facility] Work Phone: Start: 11-16-2023 End: 11-16-2023 ambulatory [facility] Work Phone: Start: 11-16-2023 End: 11-16-2023 Patient encounter procedure [facility] Work Phone: Start: 07-05-2023 End: 07-05-2023 ambulatory [facility] Work Phone: Start: 07-05-2023 End: 07-05-2023 Patient encounter procedure [facility] Work Phone: Start: 03-21-2023 End: 03-21-2023 ambulatory Deysi Dsouza Other [employer] Other Start: 03-21-2023 Office outpatient vi sit 15 minutes Deysi Dsouza [facility] Start: 01-18-2023 End: 01-18-2023 ambulatory Deysi Bernardr Other [employer] Other Start: 01-18-2023 Office outpatient vi sit 15 minutes Deysi Dsouza [facility] Start: 01-11-2023 End: 01-11-2023 ambulatory Deysi Dsouza Other [employer] Other Start: 01-11-2023 Office outpatient ne w 30 minutes Deysi Reynagaachejacklyn [facility] Start: 03-11-2022 End: 03-11-[address] NONE LISTED REQUEST Facility:[facility] Start: 03-09-2022 End: 03-09-[address] NONE LISTED REQUEST Facility:[facility] Start: 01-24-2022 End: 01-24-[address] NONE LISTED REQUEST Facility: Start: 01-25-2018 End: 01-25-2018 Emergency department patient visit FITO VERMA [facility] Procedures Date Procedure Procedure Detail Performing Clinician Start: 01-25-2018 Radex spine lumbosac ral 2/3 views FITO VERMA Excision of cyst Dalton Smalls Comment on above: right hand Incision AND drainage José Luis CANTU Thumb surgery Dalton CANTU Plan of Treatment Date Care Activity Detail Author Start: 08-12-2024 Patient referral [facility] Work Phone: Comprehensive metabo lic 2000 panel - Serum or Plasma [facility] Patient referral [facility] Work Phone: XR Lumbar spine GE [address] [facility] Immunizations Immunization Date Immunization Notes Care Provider Marcelino hood 03-17-2013 tetanus and diphther ia toxoids, adsorbed, preservative free, for adult use (5 Lf of tetanus toxoid and 2 Lf of diphtheria toxoid) Dalton CANTU [facility] Payers Date Payer Category Payer Unknown [id number] 2024 Unknown [id number] 2014 Unknown [id number] 1989 Unknown [id number] [id number] 1989 Unknown [id number] [id number] [id number] 1989 Unknown [id number] [id number] [id number] 1989 Unknown [id number] [id number] [id number] 1989 Unknown [id number] [id number] [id number] 1959 Self-pay [id number] [facility] [id number] Unknown MMO [id number] Social History Date Type Detail Facility Sex Assigned At [facility] Start: 07-05-2023 [facility] Start: 1990 Sex Assigned At Male F [facility] Start: 08-12-2024 End: 09-18-2024 Sex Male (finding) [facility] Start: 08-28-2024 Tobacco smoking status Ex-smoker (fi nding) [facility] [place] Sexual Orientation [facility] [place] Functional Status Date Assessment Result Facility 08-28-2024 Functional Status N/A [facility] [place] Clinical Notes 01-11-2023 to 08-28-2024 Note Date [...] after he had drainage of abscess at [facility] ED; patient was scheduled for surgery, but [...] 14.0 Years. Yes, (more content not included)... [facility] Comment on above: Result Comment: Elec tronically Signed By: ALONDRA GUTIERREZ, Dalton Pollack.maria e\Date and Time Signed: 08/28/24 16:15 EDT 08-12-2024 Chief complaint+R venu for visit Narrative Referral to General Surgeon August 12, 2024 9:31am A1c September 18, 2024 1:39p m Reason for Visit Admit Date Pilonidal cyst August 12, 2024 9:3 1am Vaping nicotine dependence, tobacco prod uct August 12, 2024 9:31am Wellness examination August 12, 2024 9: 31am [facility] Work Phone: 1(661) 700-453904-28-2025 Evaluation note* Diagnosis Onset Date Resolution Status Admit Date Pilonidal cyst acute July 9:31am Vaping nicotine dependence, tobacco product acute August 12, 2024 9:31am Wellness examination acute Apri l 2024 9:31am [facility] Work Phone: 1(354) 579-585212-05-2023 Evaluation note* Encounter Date Diagnosis Assessment Notes Treatment Notes Treatment Clinical Notes Mar, Acute gastroenteriti s (ICD-10 - K52.9) Viral nature of GI illness reviewed. Must maintain fluid hydration. Slow advancement of clear liquid diet discussed. BRAT diet discussed. Needs for which to seek ER evaluation regarding dehydration reviewed including uncontrolled stools/vomiting, dry/cracked mouth/lips, not urinating at least every 4 hours, etc. Antiemeticsw/ sedation warning. Strict hygiene to prevent further transmission. Work note given. F/U with PCP if sx persist > 7 days, may need stool studies. [employer] Other 10-04-2023 Evaluation note* Encounter Date Diagnosis [...] today as well as slow quit approach. [employer] Other 09-27-2023 Evaluation note* Encounter Date Diagnosis [...] and willingness to quit at each appointment. [employer] Other Chief complaint+Reason for visit Narrative* Chief Complaint Admit Date Referral to General Surgeon August 12, 2024 9:31am Reason for Visit Admit Date Pilonidal cyst August 12, 2024 9:3 1am Vaping nicotine dependence, tobacco prod uct August 12, 2024 9:31am Wellness examination August 12, 2024 9: 31am [facility] Work Phone: Evaluation + Plan note No data available for this section [facility] [place] Evaluation note* Diagnosis Onset Date Resolution Status Current smoker acute Low back pain acute Other chronic pain acute [facility] Work Phone: Evaluation noteNo assessment information available [facility] Work Phone: Evaluation note* Diagnosis Onset Date Resolution Status Admit Date Pilonidal cyst acute July 9:31am Vaping nicotine dependence, tobacco product acute August 12, 2024 9:31am Wellness examination acute Apri l 2024 9:31am [facility] Work Phone: History general Narrative - Reported* Type Description Date Surgical History Thumb surgery Surgical History Cyst drainage [facility] Other Hospital Discharge instructionsAmbulatory Orders* Referral to General Surgery Time Frame: 08/12/24, Location: None Selected [facility] Work Phone: Hospital Discharge instructions No data available for this section [facility] [place] Progress note No data available for this section [facility] [place] Summary Purpose Family History Relationship Condition Age at Onset Recorded Date/T rosaline Not Specified Hypertension Unknown Relationship Condition Age at Onset Recorded Date/T rosaline mother Hypertension Unknown Advance Directives Advance Directive Response Recorded Date/ Time Advance Directives No July 04 024 8:50am Chief Complaint and Reason for Visit Chief Complaint Check up Reason for Visit Current smoker Low back pain Other chronic pain Additional Source Comments (unrecognized sect ion and content) No Status Records FoundNo Status Records FoundNo Status Records Found INFORMATION SOURCE (unrecogn ized section and content) DATE CREATED AUTHOR 02/27/2018 [facility] DATE CREATED AUTHOR AUTHOR'S ORGANIZ ATION 03/16/2022 [facility] DATE CREATED AUTHOR AUTHOR'S ORGANIZ ATION 08/30/2024 [facility] REASON FOR VISIT (unrecogniz ed section and content) Check UpPink EyeUPSET STOMAC H FOR DAYS Care Teams (unrecognized sec tion and content) Team Status: Active Member Role Status Dates PHYSICIAN NO FAMILY Primary Care Provider Active Team Status: Inactive Member Role Status Dates PHYSICIAN NO FAMILY Primary Care Provider Active Start: July 05, 2023 End: July 05, 2023 Deysi Dsouza APRN [employer] Attending Provider Act lance Start: July 05, 2023 End: July 05, 2023 Team Status: Active Member Role Status Dates Deysi Dsouza APRN [employer]-C Primary Care Provider Active Team Status: Inactive Member Role Status Dates Deysi Dsouza APRN [employer]C Primary Care Provider, Attending Provider Active Start: November 16, 2023 End: November 16, 2023 Team Status: Inactive Member Role Status Dates Deysi Dsouza APRN [employer]C Primary Care Provider, Attending Provider Active Start: August 12, 2024 End: August 12, 2024 Team Status: Active Member Role Status Dates Deysi Dsouza APRN [employer]C Primary Care Provider, Attending Provider Active Start: August 21, 2024 Team Status: Active Member Role Status Dates Deysi Dsouza APRN [employer] Primary Care Provider, Attending Provider Active Start: September 18, 2024 Team Status: Inactive Member Role Status Dates Deysi Dsouza APRN [employer]C Primary Care Provider, Attending Provider Active Start: September 18, 2024 End: September 18, 2024 Goals (unrecognized section and content) Goals [...] BE BASED ON THE PRIMARY CLINICAL RECORDS. [employer] provides no warranty or guarantee of the accuracy or completeness of information in this document.
--- NOTE | 2024-09-25 09:34 | PC.NURSE ---
09/25/24- Pilonidal cyst to coccyx area is currently draining.
[2024-09-25] MEDS: LACTATED RINGER'S SOLUTION 1,000 ML 50 ML IV ×2 (09:36→11:31)
[2024-09-25] MEDS: METOCLOPRAMIDE HCL 10 MG/2 ML VIAL IVP (09:47)
[2024-09-25] MEDS: CEFAZOLIN SODIUM 2 GM/50 ML D5W PREMIX IV (10:28)
[2024-09-25] MEDS: BUPIVACAINE HCL 0.5% PF 50 MG/10 ML VIAL 20 ML INJ (11:17)
[2024-09-25] MEDS: TRAMADOL HCL 50 MG TABLET PO (12:14)
== END 2024-09-25 13:00 | disposition home or self-care (01) ==
LOC: SURGOUT 08:47
PROVIDERS: PCP Nurse Practitioner Family; Visit Provider Surgery
PROC: (CPT 00300; principal; 2024-09-25 09:45)
DX: L05.91 Pilonidal cyst without abscess (principal); F17.290 Nicotine dependence, other tobacco product, uncomplicated; E11.9 Type 2 diabetes mellitus without complications
CPT/HCPCS: 00300; 11770; 88304; J0131; J0665; J0690; J1100; J1171; J1885; J2250; J2704; J2765; J3010